=== PATIENT | female | born 1970 | race Caucasian/White ===

== ENCOUNTER → 2022-02-08 | Outpatient (CLI) | payer MEDICARE, MEDICAID, SELFPAY ==
--- NOTE | 2022-02-08 08:51 | NM_ITS ---
CLINICAL: 51-year-old female with history of carcinoma of the breast. WHOLE BODY 99m Tc MDP RADIONUCLIDE BONE SCINTIGRAPHY COMPARISON: None available FINDINGS: Following the intravenous administration of 26.8 mCi of 99m Tc MDP, whole body bone images reveal: 1. Increased radiotracer concentration is defined in the acromioclavicular and sternoclavicular compartments of both shoulders, the visualized right and left elbows, the fourth lumbar vertebra posteriorly on the left and right, the patellofemoral and medial tibial compartments of both knees, the dorsal medial compartments of both ankles. 2. The remaining skeletal structures are scintigraphically unremarkable with normal-appearing renal images and urinary bladder activity identified. Enhanced tracer uptake is noted in the bilateral maxilla and mandible, the interorbital aspect of the skull likely representing periodontal disease and periostitis respectively. NM/Bone Scan Whole Body IMPRESSION: 1. Degenerative arthritis appears expressed in the bilateral shoulders, the right and left elbows, the lumbar spine, both knee articulations the right and left ankles. 2. There is no definitive scintigraphic evidence of diffuse axial skeletal metastatic disease on the current examination. Electronically Signed: Jaciel Gustafson, at 10:13 EDT ,
== END | disposition home or self-care (01) ==
LOC: NM 08:50
PROVIDERS: PCP Family Medicine; Referring Provider Orthopaedic Surgery; Visit Provider Orthopaedic Surgery
DX: M54.50 Low back pain, unspecified (principal)
CPT/HCPCS: 78306; A9503

== ENCOUNTER 2023-11-04 14:21 | Inpatient (IN) | payer MEDICARE, MEDICAID, SELFPAY ==
[2023-11-04 14:22] VITALS: BP 140/87; PULSE 99; RESP 16; TEMP 36.8; O2SAT 98; BMI 28.6
--- NOTE | 2023-11-04 14:30 | CT_ITS ---
STUDY: CT ABDOMEN AND PELVIS WITHOUT CONTRAST REASON FOR EXAM: Female, 53 years old. Right flank pain. History of breast cancer. RADIATION DOSAGE (If Supplied By Facility): CTDIvol = ( 10.03 ) mGy, DLP = ( 513.48 ) mGycm TECHNIQUE: Transaxial images were obtained from the dome of the diaphragm to the symphysis pubis without oral contrast, and without intravenous contrast. Sagittal and coronal images were reconstructed. Individualized dose optimization techniques were used for this CT. COMPARISON: None. FINDINGS: Right breast implant is seen. Minimal increased linear markings are seen in the anterior aspect of the right middle lobe suggestive of possible scarring following radiation treatment. The visualized portions of the heart are within normal limits. Normal liver. Normal gallbladder and extrahepatic biliary system. Normal spleen. Normal pancreas. There is a small, circumscribed, smooth, low attenuation left adrenal mass, consistent with an adrenal adenoma. This measures 1.2 cm. Normal right adrenal gland. Mild degree of right hydronephrosis and right hydroureter due to a 3.9 mm calculus at the right ureterovesical junction. There is a 6.9 mm calculus in the left renal pelvis causing mild degree of left hydronephrosis. Normal visualized stomach. Normal small intestine. There are scattered colonic diverticula consistent with diverticulosis. The appendix is visualized and appears normal. Normal abdominal aorta. Normal inferior vena cava. Normal retroperitoneum. Normal urinary bladder. Normal abdominal wall. There are mild degenerative changes of the visualized lumbar spine. CT/Abdomen/Pelvis without Cont IMPRESSION: Right hydronephrosis and hydroureter due to a 3.9 mm calculus at the right ureterovesical junction. 6.9 mm calculus in the left renal pelvis causing a mild degree of left hydronephrosis. Electronically Signed: Teddy Garcia MD at 15:10 EDT ,
--- NOTE | 2023-11-04 14:31 | EX.ED.DYSGE1 ---
HPI History of Present Illness Chief Complaint: Abd Pain Detail of Chief Complaint: Abdominal pain Informant: patient Narrative Narrative: Patient presents with right-sided abdominal pain that started 3 hours ago. Initially was more mild and then became more severe she was out shopping. She describes the pain is right lower abdomen and suprapubic region neck and it radiates to her right lower back. She has nausea. She rates her pain a 10 out of 10. She denies recent illness. She has had no fever. She denies diarrhea. No history of kidney stones. She denies dysuria urgency or frequency. She denies hematuria. 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 Osteopenia Fibromyalgia Rheumatoid aortitis Bipolar 1 disorder Malignant neoplasm Home Medications ?Medication ?Instructions ?Recorded ?Last Taken ?Type albuterol sulfate 90 mcg/actuation 1 inh inhalation ONCE 01/25/22 Unknown History aerosol inhaler amitriptyline 75 mg tablet mg PO 01/25/22 Unknown History anastrozole 1 mg tablet mg PO 01/25/22 Unknown History ascorbate calcium (vitamin C) 500 500 mg PO DAILY 01/25/22 Unknown History mg tablet cyclobenzaprine 10 mg tablet mg PO 01/25/22 Unknown History divalproex 250 mg tablet,delayed mg PO 01/25/22 Unknown History release furosemide 40 mg tablet mg PO 01/25/22 Unknown History gabapentin 400 mg capsule mg PO 01/25/22 Unknown History levothyroxine 25 mcg tablet mcg PO 01/25/22 Unknown History loratadine 10 mg tablet (Allergy 10 mg PO DAILY 01/25/22 Unknown History Relief (loratadine)) omega 9-tzt-iqo-fish oil 300 1 cap PO DAILY 01/25/22 Unknown History mg-1,000 mg capsule (Fish Oil) omeprazole 40 mg capsule,delayed mg PO 01/25/22 Unknown History release oxycodone-acetaminophen 5 mg-325 tab PO 01/25/22 Unknown History mg tablet rosuvastatin 40 mg tablet mg PO 01/25/22 Unknown History sumatriptan succinate 25 mg tablet mg PO 01/25/22 Unknown History topiramate 50 mg tablet mg PO 01/25/22 Unknown History Allergy/AdvReac Type Severity Reaction Status Date / Time ibuprofen (From Advil) Allergy Mild Inflammation Verified 04/24/22 13:04 of lung bee venom protein (honey Allergy Inflammation Verified 09/13/22 10:38 bee) (bee sting) of lung Social History Smoking Status: Current every day smoker tobacco type: cigarettes ROS ROS ED Review of Systems ROS Unobtainable: other Constitutional Constitutional ED: Reports lethargy; Denies chills, fever(s), sweats or weight loss Eyes Eyes: Denies blurry vision, change in vision or diplopia ENT ENT ED: Denies rhinorrhea or sore throat Cardiovascular Cardiovascular: Denies chest pain, orthopnea or racing heartbeat Respiratory/Chest Respiratory/Chest: Denies cough, dyspnea, dyspnea on exertion, orthopnea or sputum Gastrointestinal Gastrointestinal: Reports abdominal pain and nausea; Denies diarrhea or vomiting Genitourinary Genitourinary ED: Denies dysuria, hematuria or urinary frequency Musculoskeletal Musculoskeletal: Reports back pain; Denies arthralgias, myalgias or neck pain Integumentary Denies abscess, Abrasions or rash Neurologic Neurologic: Denies headache(s) or weakness Psychiatric Psychiatric: Denies anxiety, depression or suicidal thoughts Endocrine Endocrinology: Denies polydipsia, polyphagia or polyuria Hematologic/Lymphatic Hematologic/Lymphatic: Denies easy bleeding, easy bruising or lymphadenopathy Allergic/Immunologic Allergic/Immunologic ED: Denies mouth swelling, tongue swelling or urticaria EXAM Physical Exam Const Vital Signs: 11/04/23 14:22 11/04/23 15:50 11/04/23 16:00 Temperature 98.3 F 96.9 F L Temperature Source Temporal Temporal Pulse Rate 99 95 68 Respiratory Rate 16 16 18 Blood Pressure 140/87 H 111/73 110/61 Blood Pressure Mean 104 85 77 Pulse Ox 98 99 93 Oxygen Delivery Method Room Air Room Air Room Air Positive well nourished and well developed General Appearance ED: well developed and NAD HEENT Reports TM's clear and moist mucous membranes normocephalic and atraumatic; Negative for trauma or tenderness Tympanic Membrane ED: Yes TM's clear Eyes PERRL and EOMs intact bilaterally General Eye ED: Negative for pale conjunctiva or scleral icterus Neck no lymphadenopathy, supple and no JVD General: Negative for tenderness Chest Wall inspection of chest normal and palpation of chest normal Chest: Negative for tenderness Resp normal respiratory effort and clear to auscultation bilaterally Effort and Inspection: Negative for respiratory distress or pain with movement Auscultation: Negative for rhonchi, wheezes or diminished lung sounds Cardio regular rate, regular rhythm, S1 normal heart sound, S2 normal heart sound and no murmurs Peripheral Pulses: pulses 2+ throughout GI normal to inspection, nondistended, normoactive bowel sounds, soft to palpation, non-distended and no masses GI Narrative: Tenderness palpation over the right lower quadrant and suprapubic region. There is no rebound, rigidity, or peritoneal signs. Mild tenderness over the right CVA. Back/Spine no thoracic nor lumbar tenderness; Negative for no CVA tenderness General Back: CVA tenderness right Extremity normal to inspection General Extremety ED: Negative for edema General Extremity: Negative for edema Neuro oriented x3, CN's II-XII intact bilaterally, no sensory deficits noted and gait normal Sensorium / Orientation: awake, alert, oriented to person, oriented to place and oriented to time Motor Exam: strength 5/5 throughout and strength abnormal Psych mental status grossly normal Skin no rashes or lesions noted and no wounds MDM MDM MDM Narrative Medical decision making narrative: It was sudden onset of right flank pain. IV line established. She was medicated with morphine and Zofran as she cannot have NSAIDs. CBC with differential count of 9.2 with hemoglobin 13.8 and platelet count of 215. Chemistries unremarkable other than low CO2 of 19. LFTs were normal. Urinalysis positive for infection with positive nitrites as well as 500 leukocyte esterase and greater than 100 WBCs and +3 bacteria. Urine culture was sent. Patient was started on Rocephin 1 g IV. Patient had to be remedicated with Dilaudid and continues to complain of pain. Discussed case with urology who evaluated patient in the emergency department and will admit patient to the hospital. Lab Data Attestation: I reviewed the patient's lab results. Labs: Laboratory Results - last 24 hr 11/04/23 11/04/23 14:10 15:00 WBC 9.2 RBC 4.41 Hgb 13.8 Hct 41.6 MCV 94.3 MCH 31.3 MCHC 33.2 RDW Std Deviation 48.4 H RDW Coeff of Dian 14.0 Plt Count 215 MPV 10.5 Immature Gran % (Auto) 0.300 Neut % (Auto) 57.8 Lymph % (Auto) 32.2 [place] % (Auto) 7.2 Eos % (Auto) 2.1 Baso % (Auto) 0.4 Absolute Neuts (auto) 5.3 Absolute Lymphs (auto) 2.96 Nucleated RBC % 0 Sodium 139 Potassium 3.6 Chloride 114 H Carbon Dioxide 19.0 L Anion Gap 6 BUN 17 Creatinine 1.15 H Estim Creat Clear Calc 59.12 Est GFR (MDRD) Af Amer 64 Est GFR (MDRD) Non-Af 53 L BUN/Creatinine Ratio 14.8 Glucose 125 H Lactic Acid 0.7 Calcium 9.5 Total Bilirubin 0.30 AST 10 L ALT 20 Alkaline Phosphatase 111 Total Protein 7.5 Albumin 4.0 Globulin 3.5 Albumin/Globulin Ratio 1.1 Urine Color Yellow Urine Clarity Turbid Urine pH 6.0 Ur Specific [place] 1.025 Urine Protein 100 H Urine Glucose (UA) Normal Urine Ketones Negative Urine Occult Blood 250 H Urine Nitrite Positive H Urine Bilirubin Negative Urine Urobilinogen Normal Ur Leukocyte Esterase 500 H Urine RBC 10-25 SEEN Urine WBC >100 SEEN Ur Squamous Epith Cells 0-5 SEEN Calcium Oxalate Crystal RARE Urine Bacteria 3+ Urine Mucus 0 SEEN Radiography Diagnostic Testing: Clinical Impression(s) from Imaging Studies Abdomen/Pelvis CT 11/04/23 14:30 IMPRESSION: Right hydronephrosis and hydroureter due to a 3.9 mm calculus at the right ureterovesical junction. 6.9 mm calculus in the left renal pelvis causing a mild degree of left hydronephrosis. Electronically Signed: Teddy Garcia MD at 15:10 EDT , Discharge Plan Triage Chief Complaint: Abd Pain ED Provider: Pamela Rivera Dx/Rx/DC Orders Clinical Impression: Urolithiasis, UTI (urinary tract infection), Intractable pain Prescriptions: No Action oxycodone-acetaminophen 5-325 mg tablet PO amitriptyline 75 mg tablet PO omeprazole 40 mg capsule,delayed release(DR/EC) PO anastrozole 1 mg tablet PO topiramate 50 mg tablet PO sumatriptan succinate 25 mg tablet PO cyclobenzaprine 10 mg tablet PO divalproex 250 mg tablet,delayed release (DR/EC) PO rosuvastatin 40 mg tablet PO furosemide 40 mg tablet PO levothyroxine 25 mcg tablet PO gabapentin 400 mg capsule PO albuterol sulfate 90 mcg/actuation HFA aerosol inhaler 1 inh inhalation ONCE omega 7-pku-tyd-fish oil [Fish Oil] 300-1,000 mg capsule 1 cap PO DAILY ascorbate calcium (vitamin C) 500 mg tablet 500 mg PO DAILY loratadine [Allergy Relief (loratadine)] 10 mg tablet 10 mg PO DAILY Primary Care Provider: Jeffrey Rivers Referrals: Solomon Luciano MD [[facility]] - Print Language: Mohawk Disposition Disposition: Acute Care Hospital [facility]
[2023-11-04] MEDS: 0.9% Normal Saline (1000mL) 1,000 ML 1000 ML IV (14:36)
[2023-11-04] MEDS: Morphine 4 MG/ML Syringe IV (14:36)
[2023-11-04] MEDS: Ondansetron 4 MG/2 ML Vial IV (14:36)
[2023-11-04 14:54] LABS: Absolute Lymphocyte Count 2.96 X10^3/uL (0.83-4.51); Absolute Neutrophil Count 5.3 X10^3/uL (2.0-7.7); Basophil# 0.04 X10^3/uL; Basophil% 0.4 % (0-1); Eosinophil# 0.19 X10^3/uL; Eosinophils% 2.1 % (0-5); Hematocrit 41.6 % (37-47); Hemoglobin 13.8 g/dL (12.0-15.0); Lymphocyte # 2.96 X10^3/ul (0.83-4.51); Lymphocyte % 32.2 % (19-41); Mean Corp Hgb Conc 33.2 g/dL (32-36); Mean Corpuscular Hgb 31.3 pg (27.0-32.0); Mean Corpuscular Volume 94.3 fL (81-99); Mean Platelet Vol. 10.5 fl (6.2-12.0); Monocyte# 0.66 X10^3/uL; Monocyte% 7.2 % (0-10); NRBC Flagged by Analyzer 0 % (0-5); Neutrophil # 5.31 X10^3/uL (2.7-7.7); Neutrophil % 57.8 % (47-70); Platelet Count 215 K/mm3 (150-450); RBC Distribution Width SD 48.4 fl (35.1-43.9); Red Blood Count 4.41 M/mm3 (4.2-5.4); White Blood Count 9.2 K/mm3 (4.4-11.0)
[2023-11-04 15:10] LABS: ALB/GLOB Ratio 1.1 RATIO (0.9-2.4); AST(SGOT) 10 U/L (15-37); Alanine Aminotransfer ALT/SGPT 20 U/L (13-56); Alkaline Phosphatase 111 U/L (45-117); Anion Gap 6 (5-15); BUN 17 mg/dL (7-18); BUN/Creat Ratio 14.8 RATIO (10-20); Calcium,Total 9.5 mg/dL (8.5-10.1); Chloride 114 mmol/L (98-107); Creatinine, Serum 1.15 mg/dL (0.55-1.02); EST Glomerular Filtration Rate 53 mL/min (>60); Est Glom Filt Rate - Afr Amer 64 mL/min (>60); Estimated Creatinine Clearance 59.12 ml/min; Globulin 3.5 g/dL (2.2-4.2); Glucose 125 mg/dL (74-106); Potassium 3.6 mmol/L (3.5-5.1); Protein, Total 7.5 g/dL (6.4-8.2); Sodium Level 139 mmol/L (136-145)
[2023-11-04] MEDS: HYDROmorphone 1 MG/ML Syringe IV (15:15)
[2023-11-04 15:18] LABS: Lactic Acid 0.7 mmol/L (0.4-1.9)
[2023-11-04 15:32] LABS: Mucous, Urine 0 SEEN /hpf (<or=2+)
[2023-11-04 15:33] LABS: Color, Urine Yellow (Yellow); Glucose, Dipstick Normal (Normal); Ketone-Dipstick Negative (Negative); Leukocyte Esterase-Dipstick 500 /ul (Negative); Nitrite-Dipstick Positive (Negative); Occult Blood-Urine 250 /ul (Negative); Protein-Dipstick 100 mg/dl (Negative); Specific Gravity, Urine 1.025 (1.002-1.030); Urine Bilirubin Dipstick Negative (Negative); Urine Clarity Turbid (Clear); Urine Urobilinogen Normal (Normal)
[2023-11-04 15:50] VITALS: BP 111/73; PULSE 95; RESP 16; TEMP 36.1; O2SAT 99
[2023-11-04 15:50] LABS: Squamous Epithelial Cells - UA 0-5 SEEN /hpf (5-10); White Blood Cells >100 SEEN /hpf (0-5)
[2023-11-04 15:51] LABS: Bacteria 3+ /hpf (None Seen); Calcium Oxalate Crystals Ur RARE /hpf (<or=2+)
[2023-11-04 15:52] LABS: Red Blood Cells-Urine 10-25 SEEN /hpf (0-5)
[2023-11-04 16:00] VITALS: BP 110/61; PULSE 68; RESP 18; O2SAT 93
--- NOTE | 2023-11-04 16:23 | PCM.HP.STD ---
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 Osteopenia Fibromyalgia Rheumatoid aortitis Bipolar 1 disorder Malignant neoplasm Home Medications ?Medication ?Instructions ?Recorded ?Last Taken ?Type albuterol sulfate 90 mcg/actuation 1 inh inhalation ONCE 01/25/22 Unknown History aerosol inhaler amitriptyline 75 mg tablet mg PO 01/25/22 Unknown History anastrozole 1 mg tablet mg PO 01/25/22 Unknown History ascorbate calcium (vitamin C) 500 500 mg PO DAILY 01/25/22 Unknown History mg tablet cyclobenzaprine 10 mg tablet mg PO 01/25/22 Unknown History divalproex 250 mg tablet,delayed mg PO 01/25/22 Unknown History release furosemide 40 mg tablet mg PO 01/25/22 Unknown History gabapentin 400 mg capsule mg PO 01/25/22 Unknown History levothyroxine 25 mcg tablet mcg PO 01/25/22 Unknown History loratadine 10 mg tablet (Allergy 10 mg PO DAILY 01/25/22 Unknown History Relief (loratadine)) omega 1-tts-tyn-fish oil 300 1 cap PO DAILY 01/25/22 Unknown History mg-1,000 mg capsule (Fish Oil) omeprazole 40 mg capsule,delayed mg PO 01/25/22 Unknown History release oxycodone-acetaminophen 5 mg-325 tab PO 01/25/22 Unknown History mg tablet rosuvastatin 40 mg tablet mg PO 01/25/22 Unknown History sumatriptan succinate 25 mg tablet mg PO 01/25/22 Unknown History topiramate 50 mg tablet mg PO 01/25/22 Unknown History Allergy/AdvReac Type Severity Reaction Status Date / Time ibuprofen (From Advil) Allergy Mild Inflammation Verified 04/24/22 13:04 of lung bee venom protein (honey Allergy Inflammation Verified 09/13/22 10:38 bee) (bee sting) of lung Social History Smoking Status: Current every day smoker tobacco type: cigarettes ROS Constitutional Constitutional: Denies chills, fever(s) or malaise Eyes Eyes: Denies blurry vision or change in vision ENT HEENT: Reports none Cardiovascular Cardiovascular: Denies chest pain or palpitations Respiratory/Chest Respiratory/Chest: Denies cough or shortness of breath with exertion Gastrointestinal Gastrointestinal: Denies abdominal pain, constipation or diarrhea Musculoskeletal Musculoskeletal: Denies back pain, joint stiffness or joint swelling Integumentary Integumentary: Denies dry skin, jaundice, lesions or rash Neurologic Neurologic: Denies confusion, syncope or weakness Psychiatric Psychiatric: Reports none; Denies anxiety or depression Endocrine Endocrinology: Denies excessive sweating, fatigue or flushing Hematologic/Lymphatic Hematologic/Lymphatic: Denies anemia, easy bleeding or easy bruising Vital Signs Vital Signs Vital Signs: 11/04/23 14:22 11/04/23 15:50 11/04/23 16:00 Temperature 98.3 F 96.9 F L Temperature Source Temporal Temporal Pulse Rate 99 95 68 Respiratory Rate 16 16 18 Blood Pressure 140/87 H 111/73 110/61 Blood Pressure Mean 104 85 77 Pulse Ox 98 99 93 Oxygen Delivery Method Room Air Room Air Room Air Weight Weight: 78.1 kg Body Mass Index (BMI) 28.6 Physical Exam Const alert and oriented x3 General Appearance: cooperative HEENT normocephalic, head/scalp atraumatic, EAC's normal and TM's normal bilaterally Eyes PERRL and EOMs intact bilaterally Pupil: sluggish Neck no lymphadenopathy, supple and no JVD General: trachea midline Lymph Lymphatic: no lymphadenopathy noted, lymphedema and lymphadenopathy Resp normal respiratory effort, normal air movement and clear to auscultation bilaterally Cardio regular rate, regular rhythm and peripheral pulses 2+ throughout GI soft to palpation, non-tender and non-distended Extremity normal capillary refill and no clubbing, cyanosis or edema General Extremity: no tenderness to palpation of joints or extremities Skin no rashes or lesions noted General Skin Exam: turgor normal Lesions: no lesions Rashes: no rashes Neuro CN's II-XII intact bilaterally Speech: speech normal Motor Exam: strength 5/5 throughout; Negative for general weakness Psych thought process normal, cooperative and affect normal Appearance: appropriate Results Lab / Micro Data 11/04/23 14:10 11/04/23 14:10 Labs: Laboratory Results - last 24 hr 11/04/23 14:10: WBC 9.2, RBC 4.41, Hgb 13.8, Hct 41.6, MCV 94.3, MCH 31.3, MCHC 33.2, RDW Std Deviation 48.4 H, RDW Coeff of Dian 14.0, Plt Count 215, MPV 10.5, Immature Gran % (Auto) 0.300, Neut % (Auto) 57.8, Lymph % (Auto) 32.2, [place] % (Auto) 7.2, Eos % (Auto) 2.1, Baso % (Auto) 0.4, Absolute Neuts (auto) 5.3, Absolute Lymphs (auto) 2.96, Nucleated RBC % 0, Sodium 139, Potassium 3.6, Chloride 114 H, Carbon Dioxide 19.0 L, Anion Gap 6, BUN 17, Creatinine 1.15 H, Estim Creat Clear Calc 59.12, Est GFR (MDRD) Af Amer 64, Est GFR (MDRD) Non-Af 53 L, BUN/Creatinine Ratio 14.8, Glucose 125 H, Lactic Acid 0.7, Calcium 9.5, Total Bilirubin 0.30, AST 10 L, ALT 20, Alkaline Phosphatase 111, Total Protein 7.5, Albumin 4.0, Globulin 3.5, Albumin/Globulin Ratio 1.1 11/04/23 15:00: Urine Color Yellow, Urine Clarity Turbid, Urine pH 6.0, Ur Specific [place] 1.025, Urine Protein 100 H, Urine Glucose (UA) Normal, Urine Ketones Negative, Urine Occult Blood 250 H, Urine Nitrite Positive H, Urine Bilirubin Negative, Urine Urobilinogen Normal, Ur Leukocyte Esterase 500 H, Urine RBC 10-25 SEEN, Urine WBC >100 SEEN, Ur Squamous Epith Cells 0-5 SEEN, Calcium Oxalate Crystal RARE, Urine Bacteria 3+, Urine Mucus 0 SEEN Imaging Radiology Impression Abdomen/Pelvis CT 11/04/23 14:30 IMPRESSION: Right hydronephrosis and hydroureter due to a 3.9 mm calculus at the right ureterovesical junction. 6.9 mm calculus in the left renal pelvis causing a mild degree of left hydronephrosis. 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 (2) Left renal stone: (3) Urinary tract infection:
--- NOTE | 2023-11-04 16:26 | NURSING ---
MED SURG OBS DEREJE CHOLELITHIASIS, UTI, INTRACTABLE PAIN
[2023-11-04] MEDS: Ceftriaxone 1 GM/50 mL Premix x1 IV (16:43)
[2023-11-04 18:15] VITALS: BMI 28.7
[2023-11-04 18:27] VITALS: BP 111/76; PULSE 97; RESP 18; TEMP 37.2; O2SAT 100
[2023-11-04] MEDS: 0.9% Normal Saline (1000mL) 1,000 ML 75 ML IV (18:47)
[2023-11-04] MEDS: HYDROcodone Bitartrate/Apap 5/325 Tablet PO (18:59)
[2023-11-04 22:20] VITALS: BP 103/65; PULSE 107; RESP 15; TEMP 37.5; O2SAT 98
[2023-11-04] MEDS: Ciprofloxacin 400 MG/200 ML BAG 200 MG IV (22:22)
[2023-11-04] MEDS: Acetaminophen 325 MG Tablet PO (22:30)
[2023-11-04] MEDS: Docusate Sodium 100 MG Capsule 200 MG PO (22:31)
[2023-11-04 22:41] VITALS: BMI 28.7
[2023-11-04] MEDS: Mag Hydrox/Al Hydrox/Simeth 30 ML UDC PO (23:22)
[2023-11-04] MEDS: Gabapentin 400 MG Capsule PO (23:53)
[2023-11-04] MEDS: Topiramate 100 MG Tablet PO (23:53)
[2023-11-04] MEDS: Amitriptyline 100 MG Tablet PO (23:54)
[2023-11-05] VITALS (13 sets, daily range): BP systolic 88–133; BP diastolic 60–88; PULSE 72–103; RESP 15–18; TEMP 36.2–37.2; O2SAT 94–100; BMI 28.7
--- NOTE | 2023-11-05 05:00 | EKG12_ITS ---
Test Reason : PRE-OP Blood Pressure : / mmHG Vent. Rate : 098 BPM Atrial Rate : 098 BPM P-R Int : 150 ms QRS Dur : 088 ms QT Int : 346 ms P-R-T Axes : 067 072 066 degrees QTc Int : 441 ms Normal sinus rhythm Normal ECG No previous ECGs available Confirmed by YAMILET MCHUGH, MARQUES ([id number]), news assignment editor JORGE LEE ([id number]) on 11/06/2023 8:29:38 AM Referred By: DEREJE Confirmed By:MARQUES WOODARD MD
[2023-11-05 05:58] LABS: Hematocrit 38.4 % (37-47); Hemoglobin 12.2 g/dL (12.0-15.0); Mean Corp Hgb Conc 31.8 g/dL (32-36); Mean Corpuscular Hgb 30.5 pg (27.0-32.0); Mean Platelet Vol. 10.9 fl (6.2-12.0); Platelet Count 169 K/mm3 (150-450); RBC Distribution Width CV 14.2 % (11.6-14.6); RBC Distribution Width SD 50.1 fl (35.1-43.9); White Blood Count 8.7 K/mm3 (4.4-11.0)
[2023-11-05 06:23] LABS: Anion Gap 5 (5-15); BUN 14 mg/dL (7-18); BUN/Creat Ratio 14.8 RATIO (10-20); Calcium,Total 8.7 mg/dL (8.5-10.1); Chloride 117 mmol/L (98-107); Creatinine, Serum 0.94 mg/dL (0.55-1.02); EST Glomerular Filtration Rate 66 mL/min (>60); Est Glom Filt Rate - Afr Amer 80 mL/min (>60); Estimated Creatinine Clearance 72.41 ml/min; Glucose 119 mg/dL (74-106); Potassium 3.7 mmol/L (3.5-5.1); Sodium Level 143 mmol/L (136-145); Thyroid Stim Hormone (TSH) 0.64 uIU/mL (0.358-3.74)
[2023-11-05] MEDS: Anastrozole 1 MG TABLET PO (07:27)
[2023-11-05] MEDS: Levothyroxine 25 MCG TABLET PO (07:27)
[2023-11-05] MEDS: Topiramate 100 MG Tablet PO (07:28)
[2023-11-05] MEDS: 0.9% Normal Saline (1000mL) 1,000 ML 75 ML IV (07:31)
[2023-11-05] MEDS: Loratadine 10 MG Tablet PO (07:31)
[2023-11-05] MEDS: Acetaminophen 325 MG Tablet PO (09:27)
[2023-11-05] MEDS: Ciprofloxacin 400 MG/200 ML BAG 200 MG IV (09:31)
--- NOTE | 2023-11-05 12:15 | CASEMGMT ---
RN?CM?MICROBIOLOGICAL LABORATORY TECHNICIAN?CM?to room to meet with patient for initial transition planning/care coordination?assessment.?RN?CM?introduced self and role at [facility].? Pt voices understanding and consents to?assessment?at this time.? Pt resting in bed in no distress at this time.? Pt is A/O at this time and answers all questions appropriately.?? Care providers, pharmacy, and demographics verified/updated at this time. PCP: Dr Rivers Specialists: [facility]-hematology. Dr Nia Ortiz (pt thinks this is spelling)-neuro, [facility]. GI specialist in [place]. Preferred Pharmacy: [facility] Retail Insurance: [employer], ANG[place] Prescription Benefit:?yes Living Will/HPOA:?Pt does not currently have LW/HCPOA and declines info at this time.? Pt made aware that she can contact as an out-pt and make appt in the future if she decides she would like to talk with someone about this or would like to utilize [facility] social work for advanced directive completion.? LNOK: Pt has a son who lives in [place] and daughter who lives in [place]. Mom, Ritika. Living Arrangements: Pt lives w/her mom in mobile home w/ramp entrance. Independent w/ADL's and IADL's. Transportation:?Pt states drives self and states no transportation concerns at this time.? DME: ? Denies using any DME and denies needs.? HHC/SNF: No hx of either. No needs identified. Pt wishes to return home and states has no concerns with going home at time of discharge.? CM?to follow for any discharge planning/needs.? Pt voices no concerns/needs at this time.? Advised pt to ask for?CM?if any further questions/concerns/needs arise.? Voices understanding. PLAN:??Home Yen BSN?RN?CM
--- NOTE | 2023-11-05 15:16 | NURSING ---
pt to surgery
--- NOTE | 2023-11-05 15:40 | PRE.ANES_ITS ---
ASA Classification* ASA Classification ASA Classification: 3 Assessment & Plan Anesthesia* Anesthesia Assessment Anesthesia Assessment: Discussed sedation and/or anesthesia options, risks, benefits, and alternatives with patient/parents/legal guardian/POA. Questions invited. The patient/parents/legal guardian/POA seems to understand and agrees to proceed with anesthesia plan. Reviewed the physical assessment, medical history, allergy history and patient home medications list prior to surgery/procedure/anesthetic and documented any changes. Performed airway and anesthesia risk assessments. 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 When Was Last Pacemaker Check QUESTION #4 FULL TEXT: You/Your Family Experience fever (hyperthermia) with Anesthesia Any additional information?: Yes Any Problems With Anesthesia: No (Patient denies problems with anesthesia) Cholinesterase deficiency: No You/your family experience fever (hyperthermia) with anesthesia: No Last Oral Intake Last Oral intake: Last Oral Intake NPO since 00:00 11/05/23 13:08 Meds taken in AM with sips of water? Meds patient instructed to take am of surgery PONV PONV - motor racer: PONV - motor racer Female HX of Motion Sickness HX of N/V After Surgery Non-Smoker Duration of Surgery greater than 60 minutes Number of Risk Factors PONV Score Any additional information?: Yes Female: Yes HX of Motion Sickness: No HX of N/V After Surgery: No Non-Smoker: No Duration of Surgery greater than 60 minutes: No Number of Risk Factors: 1 PONV Score: Low Risk Height & Weight Height & Weight: Anesthesia: Height & Weight Height 5 ft 5 in 11/05/23 13:08 Weight: 78.3 kg 11/05/23 13:08 Body Mass Index (BMI) 28.7 11/05/23 13:08 Respiratory Assessment Respiratory Assessment - motor racer: Respiratory Tract Infection Hx - motor racer Hx Respiratory Tract Infection No 11/04/23 22:34 STOP Sleep Apnea STOP Sleep Apnea - motor racer: STOP Sleep Apnea - motor racer Hx Hypertension No 11/04/23 18:19 Hx Sleep Apnea Yes 11/04/23 18:19 CPAP No 11/04/23 18:19 BIPAP No 11/04/23 18:19 Do you snore loudly (louder than talking or can be heard Do you often feel tired/ fatigued/ sleepy during daytime? Has anyone observed you stop breathing during sleep? STOP Results Positive 11/04/23 18:19 QUESTION #5 FULL TEXT : Do you snore loudly (louder than talking or can be heard through closed doors)? 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 Specify any problems Hx of Preganancy in last 3 No 11/04/23 18:19 Months Nurse Filling Out Transfusion FSTEINER 11/04/23 18:19 & Questions: Date: 11/04/23 11/04/23 18:19 Time: 18:20 11/04/23 18:19 Patient unable to answer at this time (ie. confused, unrespo /Reproduction History /Reproductive History - motor racer: /Reproductive Hx- motor racer Hx Now No 11/04/23 22:34 Gestational Age (in weeks): EDC: Hx Hx Para Hx Section SAB Active Medications Active Medications: Current Medications Generic Name Dose Route Start Last Admin Trade Name Freq PRN Reason Stop Dose Admin Acetaminophen 325 mg 11/04/23 16:29 11/05/23 09:27 Acetaminophen 325 Mg Tablet PO 325 mg Q6H PRN PRN Administration Pain Score 1-10 Hydrocodone Bitart/Acetaminophen 1 - 2 tablet 11/04/23 16:29 11/04/23 18:59 Hydrocodone Bitartrate/Apap 5/325 Tablet PO 2 tablet Q6H PRN PRN Administration Pain Score 4-10 Al Hydroxide/Mg Hydroxide 30 ml 11/04/23 16:29 11/04/23 23:22 Mag Hydrox/Al Hydrox/Simeth 30 Ml Udc PO 30 ml Q4H PRN PRN Administration HEARTBURN Albuterol Sulfate 2.5 mg 11/04/23 19:03 Albuterol 2.5 Mg/3 Ml Vial.Neb. INHALATION Q4H PRN SHORTNESS OF BREATH Amitriptyline HCl 100 mg 11/04/23 23:30 11/04/23 23:54 Amitriptyline 100 Mg Tablet PO 100 mg QHS BETH Administration Anastrozole 1 mg 11/05/23 10:00 11/05/23 07:27 Anastrozole 1 Mg Tablet PO 1 mg DAILY BETH Administration Atorvastatin Calcium 80 mg 11/05/23 22:00 Atorvastatin Calcium 80 Mg Tablet PO QHS BETH Baclofen 10 mg 11/04/23 23:22 Baclofen 10 Mg Tablet PO TID PRN PRN muscle spasm Docusate Sodium 200 mg 11/04/23 22:00 11/05/23 07:28 Docusate Sodium 100 Mg Capsule PO Not Given BID BETH Furosemide 40 mg 11/05/23 10:00 11/05/23 07:28 Furosemide 40 Mg Tablet PO Not Given DAILY [facility] Protocol Gabapentin 400 mg 11/04/23 23:30 11/05/23 13:20 Gabapentin 400 Mg Capsule PO Not Given TID BETH Hydroxyzine Pamoate 25 mg 11/04/23 23:22 Hydroxyzine Lilia 25 Mg Capsule PO 4X/DAY PRN itch Sodium Chloride 1,000 mls @ 75 mls/hr 11/04/23 16:30 11/05/23 15:15 IV 0 mls/hr .[id number] BETH Infusion Sodium Chloride 250 mls @ 15 mls/hr 11/04/23 18:18 IV .[id number] PRN Additional IVPB Infusion Sodium Chloride 250 mls @ 15 mls/hr 11/04/23 18:18 IV .[id number] PRN Saline Flush Levothyroxine Sodium 25 mcg 11/05/23 06:00 11/05/23 07:27 Levothyroxine 25 Mcg Tablet PO 25 mcg DAILY@0600 BETH Administration Loratadine 10 mg 11/05/23 10:00 11/05/23 07:31 Loratadine 10 Mg Tablet PO 10 mg DAILY BETH Administration Loratadine 10 mg 11/04/23 23:22 Loratadine 10 Mg Tablet PO DAILY PRN PRN allergy symptoms Sodium Chloride 10 - 40 ml 11/04/23 18:18 0.9% Saline Lock 10 Ml Syringe IV UD PRN SALINE FLUSH Topiramate 100 mg 11/04/23 23:30 11/05/23 07:28 Topiramate 100 Mg Tablet PO 100 mg BID BETH Administration Anesthesia Focused Assessment* Temperature: 97.4 F Pulse Rate: 96 Blood Pressure: 94/62 Respiratory Rate: 16 Pulse Ox: 99 Airway Assessment Mouth opens: >3 cm Mallampati Score: I Teeth Condition: Missing (Patient is edentulous) Neck Range of motion (ROM): Full ROM Pertinent Findings EKG Pertinent Findings:: Current EKG is normal sinus rhythm Focused Labs Anesthesia Preop lab: CBC WBC 8.7 K/mm3 (4.4-11.0) 11/05/23 05:09 RBC 4.00 M/mm3 (4.2-5.4) L 11/05/23 05:09 Hgb 12.2 g/dL (12.0-15.0) 11/05/23 05:09 Hct 38.4 % (37-47) 11/05/23 05:09 Plt Count 169 K/mm3 (150-450) 11/05/23 05:09 CHEMISTRY Potassium 3.7 mmol/L (3.5-5.1) 11/05/23 05:09 Sodium 143 mmol/L (136-145) 11/05/23 05:09 BUN 14 mg/dL (7-18) 11/05/23 05:09 Creatinine 0.94 mg/dL (0.55-1.02) 11/05/23 05:09 Glucose 119 mg/dL (74-106) H 11/05/23 05:09 TSH 0.64 uIU/mL (0.358-3.74) 11/05/23 05:09 COAG Review of Systems (Anesthesia) ROS Narrative System reviewed and no additional complaints, except as documented. [facility] Medical History (Updated 11/05/23 @ 15:[address] 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 Osteopenia Fibromyalgia Rheumatoid aortitis Bipolar 1 disorder Malignant neoplasm Home Medications ?Medication ?Instructions ?Recorded ?Last Taken ?Type albuterol sulfate 90 mcg/actuation 1 inh inhalation ONCE PRN 01/25/22 Unknown History aerosol inhaler shortness of breath or wheezing anastrozole 1 mg tablet 1 mg PO DAILY 01/25/22 11/04/23 History furosemide 40 mg tablet 40 mg PO DAILY 01/25/22 11/04/23 History gabapentin 400 mg capsule 400 mg PO TID 01/25/22 11/04/23 History levothyroxine 25 mcg tablet 25 mcg PO DAILY 01/25/22 11/04/23 History oxycodone-acetaminophen 5 mg-325 1 tab PO TID PRN pain 01/25/22 Unknown History mg tablet rosuvastatin 40 mg tablet 40 mg PO QHS 01/25/22 11/03/23 History sumatriptan succinate 25 mg tablet 25 mg PO PRN PRN migraine headache 01/25/22 Unknown History amitriptyline 100 mg tablet 100 mg PO QHS 11/04/23 11/03/23 History baclofen 10 mg tablet 10 mg PO TID PRN muscle spasm 11/04/23 11/04/23 History cetirizine 10 mg tablet 10 mg PO DAILY PRN allergy symptoms 11/04/23 Unknown History esomeprazole magnesium 40 mg 40 mg PO DAILY 11/04/23 11/04/23 History capsule,delayed release galcanezumab-gnlm 120 mg/mL 120 mg subcut QMONTH 11/04/23 10/10/23 History subcutaneous syringe (Emgality) hydroxyzine HCl 25 mg tablet 25 mg PO 4X/DAY PRN itch 11/04/23 Unknown History topiramate 100 mg tablet 100 mg PO BID 11/04/23 11/04/23 History Allergy/AdvReac Type Severity Reaction Status Date / Time ibuprofen (From Advil) Allergy Mild Inflammation Verified 04/24/22 13:04 of lung bee venom protein (honey Allergy Inflammation Verified 09/13/22 10:38 bee) (bee sting) of lung Surgical History History of rhinoplasty H/O right mastectomy Social History Smoking Status: Current every day smoker tobacco type: cigarettes Addt'l Information Additional Findings: Patient has had multiple lumbar steroid injection with no complication
--- NOTE | 2023-11-05 16:19 | PCM.POST.ANE ---
Anesthesia: Postop Eval I Current Vital Signs Temperature: 98.5 F Pulse Rate: 72 Blood Pressure: 133/88 Respiratory Rate: 16 Pulse Ox: 94 Oxygen Delivery Method: Room Air Assessment Airway patent: Yes Spontaneous unlabored respirations: Yes Mental status: Awake and Calm nausea: No Vomiting: No Anesthesia Complication: No Fluid Hydration Crystalloid volume administer (ml): 800 Total IV fluid infused: 800 Progress Note Anesthesia document: Postop Eval 1 completed: Yes
--- NOTE | 2023-11-05 16:40 | PCM.POST.ANE ---
Anesthesia: Postop Eval I Current Vital Signs Temperature: 97.8 F Pulse Rate: 95 Blood Pressure: 88/69 Respiratory Rate: 16 Pulse Ox: 96 Oxygen Delivery Method: Room Air Assessment Airway patent: Yes Spontaneous unlabored respirations: Yes Mental status: Awake and Calm nausea: No Vomiting: No Anesthesia Complication: No Fluid Hydration Crystalloid volume administer (ml): 400 Total IV fluid infused: 400 Progress Note Anesthesia document: Postop Eval 1 completed: Yes
--- NOTE | 2023-11-05 16:48 | DCINST_ITS ---
Discharge Instructions Diet Discharge Diet: No restrictions Activity Discharge Activity: Return to Normal Activity and May Not Drive (while taking narcotic pain medications.) Dressing / Incision Call your doctor if you observe: Fever of 101 or Higher Follow Up Care Please Follow Up With: Victorino Boone MD When: Call [phone] to get set up for Surgery to laser your stones. you have a temporary stent on the right side. Test Results: Test results from this visit will be discussed in further detail at your follow- up appointment, if applicable. Discharge Plan Admission Admit Date/Time: 11/04/23 16:31 Primary Reason for Your Visit: stent placement for stone Attending Provider: Victorino Boone Primary Care Provider: Jeffrey Rivers Patient Instructions: Having a Ureteral Stent Discharge Orders/Prescriptions Prescriptions: New oxycodone 5 mg tablet 5 mg PO Q6H PRN (Reason: pain) 7 Days Qty: 14 0RF ciprofloxacin HCl [Cipro] 500 mg tablet 500 mg PO BID Qty: 14 0RF phenazopyridine [Pyridium] 100 mg tablet 100 mg PO TID Qty: 15 0RF tamsulosin 0.4 mg capsule 0.4 mg PO DAILY Qty: 10 0RF Continued oxycodone-acetaminophen 5-325 mg tablet 1 tab PO TID PRN (Reason: pain) anastrozole 1 mg tablet 1 mg PO DAILY sumatriptan succinate 25 mg tablet 25 mg PO PRN PRN (Reason: migraine headache) rosuvastatin 40 mg tablet 40 mg PO QHS furosemide 40 mg tablet 40 mg PO DAILY levothyroxine 25 mcg tablet 25 mcg PO DAILY gabapentin 400 mg capsule 400 mg PO TID albuterol sulfate 90 mcg/actuation HFA aerosol inhaler 1 inh inhalation ONCE PRN (Reason: shortness of breath or wheezing) baclofen 10 mg tablet 10 mg PO TID PRN (Reason: muscle spasm) amitriptyline 100 mg tablet 100 mg PO QHS Patient Comments: 150MG PRESCRIBED TODAY, BUT NOT PICKED UP OR STARTED YET. STILL TAKING 100MG esomeprazole magnesium 40 mg capsule,delayed release(DR/EC) 40 mg PO DAILY Emgality Syringe 120 mg/mL syringe 120 mg subcut QMONTH Rx Instructions: LAST TAKEN 10/10/23 hydroxyzine HCl 25 mg tablet 25 mg PO 4X/DAY PRN (Reason: itch) topiramate 100 mg tablet 100 mg PO BID cetirizine 10 mg tablet 10 mg PO DAILY PRN (Reason: allergy symptoms) Referrals / Follow Up: Victorino Boone MD [Med Staff - Active Staff] - Jeffrey Rivers DO [Primary Care Provider] - Solomon Luciano MD [[facility]] - Disposition Disposition (needs filled in before D/C Order can be placed): Home, Self Care
--- NOTE | 2023-11-05 16:49 | PCM.OPRPT ---
Report of Operation Date of Procedure: 11/05/23 Pre-Operative Diagnosis: Right obstructing ureteral calculus, left renal calculus Post-Operative Diagnosis: The same Surgery/Procedure Performed:: Cystoscopy right stent placement Description of Surgical Findings:: Indication is a 54-year-old female presented to the hospital with severe right flank pain chills as a urinary tract infection. Today she was admitted for pain control and she is can undergo cystoscopy and stent placement to alleviate obstruction she is also being treated for urinary tract infection. Explained to the patient at this point not safe to proceed with any laser intervention given her current infection. She was taken back to the operating room after smooth induction of a MAC local anesthetic. The she was placed in dorsolithotomy position. The urethrovaginal area prepped and draped in usual fashion, tried to go into the urethra with a 21 Martiniquais scope but is her urethra was quite small so then I had to carefully dilate the urethra from 18 Martiniquais to 24 Martiniquais with serial Tierra dilators and this was completed then I was able to get into the urethra with a 21 Martiniquais scope quite easily the bladder looked normal and you did have some like purulent urine inside the bladder, I then cannulated the right ureteral orifice with a Glidewire and could still see the stone on fluoroscopy I could see the wire get barely passed the stone go up into the kidney and then over the wire I placed a stent it was 6 Martiniquais by 26 cm stent once the stent was in good position then I pulled the wire and this stent coiled in the kidney bladder good position and drained the bladder. Patient anesthetic reversed taken back to PACU in good condition she will be discharged home today with antibiotics and pain medicine. My office to call her with instructions to set her up for surgery to laser the remaining stones on both sides. Surgeon: Victorino Boone Type of Anesthesia: MAC and Topical Anesth Drains: stent right side Estimated Blood Loss (mL): 0 Admit VTE Documentation VTE Present on Admission: No VTE Mechan Device Prophylaxis: SCD's VTE Pharm Prophylaxis ordered?: No
--- NOTE | 2023-11-05 18:20 | NURSING ---
pt voided, afshan po well. pt discharged home
--- NOTE | 2023-11-05 19:11 | POSTOPAN2_ITS ---
Anesthesia Postop Eval I Sum Postop Eval Completion status Anesthesia document: Postop Eval 1 completed: Yes Anesthesia Postop Eval I Summary Anesthesia Postop Eval I Summary: Anesthesia Postop Eval I: Assessment Summary Airway patent Yes 11/05/23 16:46 PUBLIC INTERVIEWER.[email or web address] Spontaneous unlabored Yes 11/05/23 16:46 PUBLIC INTERVIEWER.[email or web address] respirations Mental status Awake,Calm 11/05/23 16:46 PUBLIC INTERVIEWER.[email or web address] nausea No 11/05/23 16:46 PUBLIC INTERVIEWER.[email or web address] Vomiting No 11/05/23 16:46 PUBLIC INTERVIEWER.[email or web address] Anesthesia Postop Eval I: Fluid Summary Crystalloid volume administer 400 11/05/23 16:46 PUBLIC INTERVIEWER.[email or web address] (ml) Colloids volume administered ( ml) Blood Product volume administered (ml) Total IV fluid infused 400 11/05/23 16:46 PUBLIC INTERVIEWER.[email or web address] Anesthesia Postop Eval I: Summary Notes Anesthesia Complication No 11/05/23 16:46 PUBLIC INTERVIEWER.[email or web address] Anesthesia Complication Comment: Post-operative progress note Anesthesia: Postop Eval II Evaluation Mental status: Awake and Calm Pain Level: 0 nausea: No Vomiting: No Complications Anesthesia Complication: No
--- NOTE | 2023-11-05 19:11 | PCM.POSTANE2 ---
Anesthesia Postop Eval I Sum Postop Eval Completion status Anesthesia document: Postop Eval 1 completed: Yes Anesthesia Postop Eval I Summary Anesthesia Postop Eval I Summary: Anesthesia Postop Eval I: Assessment Summary Airway patent Yes 11/05/23 16:46 CUSTOMER EXPERIENCE RETAIL CLERK.[email or web address] Spontaneous unlabored Yes 11/05/23 16:46 CUSTOMER EXPERIENCE RETAIL CLERK.[email or web address] respirations Mental status Awake,Calm 11/05/23 16:46 CUSTOMER EXPERIENCE RETAIL CLERK.[email or web address] nausea No 11/05/23 16:46 CUSTOMER EXPERIENCE RETAIL CLERK.[email or web address] Vomiting No 11/05/23 16:46 CUSTOMER EXPERIENCE RETAIL CLERK.[email or web address] Anesthesia Postop Eval I: Fluid Summary Crystalloid volume administer 400 11/05/23 16:46 CUSTOMER EXPERIENCE RETAIL CLERK.JBLOU (ml) Colloids volume administered ( ml) Blood Product volume administered (ml) Total IV fluid infused 400 11/05/23 16:46 CUSTOMER EXPERIENCE RETAIL CLERK.[email or web address] Anesthesia Postop Eval I: Summary Notes Anesthesia Complication No 11/05/23 16:46 CUSTOMER EXPERIENCE RETAIL CLERK.[email or web address] Anesthesia Complication Comment: Post-operative progress note Anesthesia: Postop Eval II Evaluation Mental status: Awake and Calm Pain Level: 0 nausea: No Vomiting: No Complications Anesthesia Complication: No
== END 2023-11-05 18:45 | disposition home or self-care (01) | DRG 661 ==
LOC: ED 16:25 → MS3 18:02
PROVIDERS: Admitting Provider Urology; Emergency Provider Emergency Medicine; PCP Student in an Organized Health Care Education/Training Program; Visit Provider Urology
PROC: 0T768DZ Dilation of Right Ureter with Intraluminal Device, Via Natural or Artificial Opening Endoscopic (ICD-10-PCS; CPT 52332; principal; 2023-11-05 15:50)
DX: N13.6 Pyonephrosis (principal); F17.210 Nicotine dependence, cigarettes, uncomplicated; Z79.890 Hormone replacement therapy; Z79.899 Other long term (current) drug therapy
CPT/HCPCS: 74176; 76000; 80048; 80053; 81001; 83605; 84443; 85025; 85027; 87086; 87088; 87186; 93005; 99282; J7030; J7050; A4216; C1769; C2617; J0744; J2405; J3490

== ENCOUNTER 2023-11-16 16:08 | Emergency (ER) | payer MEDICARE, MEDICAID, SELFPAY ==
[2023-11-16 16:09] VITALS: BP 113/77; PULSE 99; RESP 20; TEMP 36.7; O2SAT 98; BMI 28.3
[2023-11-16 16:14] VITALS: BP 113/77; PULSE 102; RESP 20; TEMP 36.7; O2SAT 100
--- NOTE | 2023-11-16 16:29 | CT_ITS ---
EXAM: CT ABDOMEN AND PELVIS WITHOUT INTRAVENOUS CONTRAST CLINICAL INDICATION: Left flank pain TECHNIQUE: Helically acquired images were obtained of the abdomen and pelvis without intravenous contrast. This CT exam was performed using one or more of the following dose reduction techniques: automated exposure control, adjustment of the mA and/or kV according to patient size, and/or use of iterative reconstruction technique. RADIATION DOSE: CTDIvol = 8.91 mGy, DLP = 462.78 mGy-cm COMPARISON: 6.18.24 FINDINGS: LOWER THORAX: Unremarkable. Lung bases are clear. No cardiomegaly. No significant pericardial effusion. ABDOMEN: LIVER: Unremarkable. Homogeneous. GALLBLADDER AND BILE DUCTS: Gallbladder is contracted. No calcified gallstones. No gallbladder distention or wall edema. No intra- or extrahepatic biliary ductal dilation. PANCREAS: Unremarkable. No focal cystic mass. SPLEEN: Unremarkable. Normal size without focal cystic or solid mass. ADRENALS: Unremarkable. No nodules. KIDNEYS AND URETERS: Double-J left ureteral stent in place. No visible ureteral calculus. Moderate left hydronephrosis. Nonobstructive left renal calcifications. These measure up to 4 mm. Normal renal size and position. STOMACH AND BOWEL: Unremarkable. No stomach or bowel distention. No focal inflammatory change. PELVIS: APPENDIX: No evidence of acute appendicitis. BLADDER: Unremarkable. REPRODUCTIVE: Unremarkable appearance of the uterus. ABDOMEN and PELVIS: INTRAPERITONEAL SPACE: Unremarkable. No ascites or other fluid collection. No free air. BONES/JOINTS: Degenerative findings in the lumbar spine. No suspicious lytic or blastic abnormality. SOFT TISSUES: Right breast implant. Umbilical hernia containing fat. VASCULATURE: Abdominal aortic vascular calcifications. Abdominal aorta is non-dilated. LYMPH NODES: Unremarkable. No enlarged lymph nodes. CT/Abdomen/Pelvis without Cont IMPRESSION: 1. Double-J left ureteral stent in place. No visible ureteral calculus. Moderate left hydronephrosis. 2. Nonobstructive left renal calcifications. These measure up to 4 mm. Electronically Signed: Rob Yoon MD at 17:11 EDT Reading Location ID and State: [facility] / [place] , Service support ,
[2023-11-16] MEDS: 0.9% Normal Saline (1000mL) 1,000 ML 999 ML IV (16:35)
[2023-11-16 16:40] LABS: Mucous, Urine 0 SEEN /hpf (<or=2+); Squamous Epithelial Cells - UA 0 SEEN /hpf (5-10)
[2023-11-16 16:41] LABS: Color, Urine Yellow (Yellow); Glucose, Dipstick Normal (Normal); Ketone-Dipstick Negative (Negative); Leukocyte Esterase-Dipstick 500 /ul (Negative); Nitrite-Dipstick Negative (Negative); Occult Blood-Urine 250 /ul (Negative); Protein-Dipstick 100 mg/dl (Negative); Specific Gravity, Urine 1.015 (1.002-1.030); Urine Bilirubin Dipstick Negative (Negative); Urine Clarity Sl. Cloudy (Clear); Urine Urobilinogen Normal (Normal)
[2023-11-16 16:42] LABS: Absolute Lymphocyte Count 1.91 X10^3/uL (0.83-4.51); Basophil# 0.02 X10^3/uL; Basophil% 0.2 % (0-1); Eosinophil# 0.18 X10^3/uL; Eosinophils% 1.8 % (0-5); Hematocrit 39.2 % (37-47); Hemoglobin 12.8 g/dL (12.0-15.0); Lymphocyte # 1.91 X10^3/ul (0.83-4.51); Lymphocyte % 19.3 % (19-41); Mean Corp Hgb Conc 32.7 g/dL (32-36); Mean Corpuscular Volume 94.9 fL (81-99); Mean Platelet Vol. 10.7 fl (6.2-12.0); Monocyte# 0.76 X10^3/uL; Monocyte% 7.7 % (0-10); NRBC Flagged by Analyzer 0 % (0-5); Neutrophil # 7.03 X10^3/uL (2.7-7.7); Neutrophil % 70.8 % (47-70); Platelet Count 202 K/mm3 (150-450); RBC Distribution Width CV 14.6 % (11.6-14.6); RBC Distribution Width SD 51.3 fl (35.1-43.9); Red Blood Count 4.13 M/mm3 (4.2-5.4); White Blood Count 9.9 K/mm3 (4.4-11.0)
[2023-11-16 16:47] LABS: Red Blood Cells-Urine 25-50 SEEN /hpf (0-5); White Blood Cells 10-25 SEEN /hpf (0-5)
[2023-11-16 16:48] LABS: Bacteria RARE /hpf (None Seen)
[2023-11-16 16:51] LABS: Anion Gap 7 (5-15); BUN 14 mg/dL (7-18); BUN/Creat Ratio 12.1 RATIO (10-20); Calcium,Total 9.3 mg/dL (8.5-10.1); Chloride 112 mmol/L (98-107); Creatinine, Serum 1.16 mg/dL (0.55-1.02); EST Glomerular Filtration Rate 52 mL/min (>60); Est Glom Filt Rate - Afr Amer 63 mL/min (>60); Estimated Creatinine Clearance 58.29 ml/min; Glucose 118 mg/dL (74-106); Potassium 3.6 mmol/L (3.5-5.1); Sodium Level 140 mmol/L (136-145)
[2023-11-16 17:14] VITALS: BP 115/70; PULSE 87; RESP 16; TEMP 36.5; O2SAT 99
[2023-11-16] MEDS: Morphine 4 MG/ML Syringe IV (17:43)
--- NOTE | 2023-11-16 17:43 | EX.ED.DYSGE1 ---
HPI <KENIA Ann - Last Filed: 11/16/23 17:48> History of Present Illness Chief Complaint: Flank Pain Narrative Narrative: Patient a 53-year-old female with history of chronic back pain is in pain management, GERD, history of kidney stones who presents to the emergency department with pain in the left flank. Patient sees Dr. Boone, patient had a left ureteral stent placed 2 days ago. Patient states today, she started having worsening left flank pain, it got severe and she called EMS to bring her to the emergency department. She did call the urologist office who referred her to the emergency department as well. 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 Osteopenia Fibromyalgia Rheumatoid aortitis Bipolar 1 disorder Malignant neoplasm Home Medications ?Medication ?Instructions ?Recorded ?Last Taken ?Type albuterol sulfate 90 mcg/actuation 1 inh inhalation ONCE PRN 01/25/22 Unknown History aerosol inhaler shortness of breath or wheezing anastrozole 1 mg tablet 1 mg PO DAILY 01/25/22 11/04/23 History furosemide 40 mg tablet 40 mg PO DAILY 01/25/22 11/04/23 History gabapentin 400 mg capsule 400 mg PO TID 01/25/22 11/04/23 History levothyroxine 25 mcg tablet 25 mcg PO DAILY 01/25/22 11/04/23 History oxycodone-acetaminophen 5 mg-325 1 tab PO TID PRN pain 01/25/22 Unknown History mg tablet rosuvastatin 40 mg tablet 40 mg PO QHS 01/25/22 11/03/23 History baclofen 10 mg tablet 10 mg PO TID PRN muscle spasm 11/04/23 11/04/23 History cetirizine 10 mg tablet 10 mg PO DAILY PRN allergy symptoms 11/04/23 Unknown History esomeprazole magnesium 40 mg 40 mg PO DAILY 11/04/23 11/04/23 History capsule,delayed release galcanezumab-gnlm 120 mg/mL 120 mg subcut QMONTH 11/04/23 10/10/23 History subcutaneous syringe (Emgality) topiramate 100 mg tablet 100 mg PO BID 11/04/23 11/04/23 History ciprofloxacin HCl 500 mg tablet 500 mg PO BID #14 tabs 11/05/23 Unknown Rx (Cipro) phenazopyridine 100 mg tablet 100 mg PO TID #15 tabs 11/05/23 Unknown Rx (Pyridium) tamsulosin 0.4 mg capsule 0.4 mg PO DAILY #10 caps 11/05/23 Unknown Rx amitriptyline 150 mg tablet 150 mg PO QHS 11/16/23 Unknown History hydroxyzine pamoate 25 mg capsule 25 mg PO DAILY PRN anxiety 11/16/23 Unknown History ubrogepant 100 mg tablet (Ubrelvy) 100 mg PO .COMPLEX 11/16/23 Unknown History Allergy/AdvReac Type Severity Reaction Status Date / Time ibuprofen (From Advil) Allergy Mild Inflammation Verified 11/16/23 16:09 of lung bee venom protein (honey Allergy Inflammation Verified 11/16/23 16:09 bee) (bee sting) of lung Surgical History (Updated 11/16/23 @ 17:48 by KENIA Ann) History of rhinoplasty H/O right mastectomy Social History Smoking Status: Heavy Smoker (>10/day) ROS <KENIA Ann - Last Filed: 11/16/23 17:48> ROS ED ROS Narrative Constitutional: Negative for fever, chills, weight loss, weakness Eyes: Negative for vision loss, vision change, double vision ENT: Negative for any sore throat, ear pain, congestion Cardiovascular: Negative for any chest pain, tightness, palpitations Respiratory: Negative for any cough, sputum production, hemoptysis, dyspnea, dyspnea on exertion, orthopnea Gastrointestinal: Negative for any abdominal pain, nausea, vomiting, diarrhea, constipation, blood in stool, blood in vomit : Negative for any urinary frequency, dysuria, retention, blood in urine Muscle skeletal: Negative for any neck pain. Positive for left-sided flank pain Neurological: Negative for any headache, syncope, dizziness Skin: Negative for any rashes, itching, abrasions, lacerations Psychiatric: Negative for any depression, anxiety, stress, suicidal ideation, homicidal ideation Hematologic: Negative for any excessive bruising, easy bleeding EXAM <KENIA Ann - Last Filed: 11/16/23 17:48> Physical Exam Narrative Exam Narrative: Vital signs reviewed. HEET: Head normocephalic atraumatic, TMs clear bilaterally. Posterior pharynx is clear, moist mucous membranes. Nares clear bilaterally. Neck: Supple with no lymphadenopathy or tenderness. No signs of meningismus. Cardiac: Regular rate and rhythm no murmurs gallops or rubs, equal peripheral pulses bilaterally. Respiratory: Lungs clear to auscultation bilaterally. No chest tenderness. Abdomen: Soft, nontender, nondistended. No abdominal bruit or pulsatile masses. No hepatosplenomegaly Extremities: No peripheral edema, no signs of gross trauma or deformity. Active full range of motion of all extremities. Neuro: Cranial nerves II through XII intact, no focal neurological deficits. Skin: Clean dry and intact with no rash, purpura, petechiae, vesicles or pustules. Backs/flank: No CVA tenderness, no midline spinal tenderness, no deformity. Patient's pain is more just below the CVA area. Psych: Normal mood and affect. No SI, HI or acute psychosis. Const Vital Signs: 11/16/23 16:09 11/16/23 16:14 11/16/23 17:14 Temperature 98.1 F 98.1 F 97.7 F L Temperature Source Oral Oral Oral Pulse Rate 99 102 H 87 Respiratory Rate 20 H 20 H 16 Blood Pressure 113/77 113/77 115/70 Blood Pressure Mean 89 89 85 Pulse Ox 98 100 99 Oxygen Delivery Method Room Air Room Air Room Air 11/16/23 17:44 Temperature Temperature Source Pulse Rate 94 Respiratory Rate 16 Blood Pressure 110/72 Blood Pressure Mean 84 Pulse Ox 100 Oxygen Delivery Method Room Air <Dr. Pankaj Parra, - Last Filed: 11/16/23 18:02> Physical Exam Const Vital Signs: 11/16/23 16:09 11/16/23 16:14 11/16/23 17:14 Temperature 98.1 F 98.1 F 97.7 F L Temperature Source Oral Oral Oral Pulse Rate 99 102 H 87 Respiratory Rate 20 H 20 H 16 Blood Pressure 113/77 113/77 115/70 Blood Pressure Mean 89 89 85 Pulse Ox 98 100 99 Oxygen Delivery Method Room Air Room Air Room Air 11/16/23 17:44 Temperature Temperature Source Pulse Rate 94 Respiratory Rate 16 Blood Pressure 110/72 Blood Pressure Mean 84 Pulse Ox 100 Oxygen Delivery Method Room Air [facility] <Jr Alatorre KENIA - Last Filed: 11/16/23 17:48> [facility] Lab Data Labs: Laboratory Results - last 24 hr 11/16/23 16:31 WBC 9.9 RBC 4.13 L Hgb 12.8 Hct 39.2 MCV 94.9 MCH 31.0 MCHC 32.7 RDW Std Deviation 51.3 H RDW Coeff of Dian 14.6 Plt Count 202 MPV 10.7 Immature Gran % (Auto) 0.200 Neut % (Auto) 70.8 H Lymph % (Auto) 19.3 [place] % (Auto) 7.7 Eos % (Auto) 1.8 Baso % (Auto) 0.2 Absolute Neuts (auto) 7.0 Absolute Lymphs (auto) 1.91 Nucleated RBC % 0 Sodium 140 Potassium 3.6 Chloride 112 H Carbon Dioxide 21.0 Anion Gap 7 BUN 14 Creatinine 1.16 H Estim Creat Clear Calc 58.29 Est GFR (MDRD) Af Amer 63 Est GFR (MDRD) Non-Af 52 L BUN/Creatinine Ratio 12.1 Glucose 118 H Calcium 9.3 Urine Color Yellow Urine Clarity Sl. Cloudy Urine pH 7.0 Ur Specific Roberts 1.015 Urine Protein 100 H Urine Glucose (UA) Normal Urine Ketones Negative Urine Occult Blood 250 H Urine Nitrite Negative Urine Bilirubin Negative Urine Urobilinogen Normal Ur Leukocyte Esterase 500 H Urine RBC 25-50 SEEN Urine WBC 10-25 SEEN Ur Squamous Epith Cells 0 SEEN Urine Bacteria RARE Urine Mucus 0 SEEN Radiography Diagnostic Testing: Clinical Impression(s) from Imaging Studies Abdomen/Pelvis CT 11/16/23 16:29 IMPRESSION: 1. Double-J left ureteral stent in place. No visible ureteral calculus. Moderate left hydronephrosis. 2. Nonobstructive left renal calcifications. These measure up to 4 mm. Electronically Signed: Rob Yoon MD at 17:11 EDT , Treatment and Re-Evaluation :: Differential diagnosis includes however is not limited to: Failed ureteral stent, UTI, pyelonephritis, obstructing uropathy Patient appears to be in no obvious distress on my initial evaluation. Vital signs are stable, patient nontoxic-appearing. Presents to the emergency department with left flank pain recent ureteral stent placed 2 days ago. Patient did receive IV Zofran, Toradol in the squad and states that this did help her pain. Patient did receive some laboratory values, CBC was unremarkable, chemistries show a normal creatinine, urinalysis was showed rare bacteria 10-25 white blood cells however patient is currently on Cipro post procedure. CT scan of the abdomen pelvis IV contrast shows a double-J left ureteral stent in place. No visible ureteral calculus. Moderate left hydronephrosis. After I got all of the information and test results, I spoke with Dr. Boone, I went over the results with him, he believes the patient stable for discharge and can follow-up outpatient. Patient was given 1 dose of morphine before discharge. Patient is currently in pain management and takes oxycodone 10 mg daily. Patient will follow-up outpatient. All questions were answered, patient stable for discharge. <Dr. Pankaj Parra, DO - Last Filed: 11/16/23 18:02> [facility] Narrative Medical decision making narrative: I have personally performed a face to face assessment of the patient and have reviewed the DAWOOD Note. I performed a substantive portion of the visit including all aspects of the following. My zeng findings include: History: Patient presents with left flank pain that began today. Patient states that it is gradually getting worse. Patient states he had a recent ureteral stent placed 2 days ago. Patient states her pain is sharp. Patient states it is localized to the left flank radiates into her back. Patient states nothing makes it better or nothing makes it worse. Patient denies any nausea or vomiting. Patient denies any dysuria, frequency, or hematuria. Exam: Vital signs are stable. Patient is afebrile. Patient is in no acute distress. Oral mucosa is pink and moist. Neck is supple. Trachea is midline. There is no JVD. Heart was regular rate and rhythm. Lungs are clear and equal bilaterally. Abdomen is soft. Bowel sounds are normal. There is some left CVA tenderness and left lower abdominal tenderness. There is no rebound or guarding noted. Cranial nerves II through XII are intact. There are no focal motor or sensory deficits noted. Medical Decision Making: Differential diagnosis includes urinary tract infection, infected stent, bleeding, ureteral calculus, and diverticulitis. CBC will be obtained to assess for leukocytosis and anemia. Basic metabolic profile will be obtained to assess for electrolyte abnormality and renal function. Urinalysis will be obtained to assess for urinary tract infection and hematuria. CT scan of the abdomen pelvis will be obtained to assess for ureteral calculus, pyelonephritis, infected stent, and displacement of the stent. Patient was given Toradol by EMS. Patient states this did improve her pain. CBC was reviewed and was within normal limits. Basic metabolic profile was reviewed and was essentially within normal limits. Urinalysis was reviewed. Leukocyte esterase was 500. Occult blood was 250. There are 25-50 red blood cells and 10-[address] scan of the abdomen pelvis was obtained. There is moderate left hydronephrosis. The stent is in place. There are nonobstructive left renal calcifications. This was interpreted by the radiologist was also independently reviewed by myself. Patient states her pain was starting to come back. Patient was given a dose of morphine. Case was discussed with Dr. Boone. He will follow-up with the patient as an outpatient. Patient understood and was agreeable with the plan. All questions were answered. Lab Data Labs: Laboratory Results - last 24 hr 11/16/23 16:31 WBC 9.9 RBC 4.13 L Hgb 12.8 Hct 39.2 MCV 94.9 MCH 31.0 MCHC 32.7 RDW Std Deviation 51.3 H RDW Coeff of Dian 14.6 Plt Count 202 MPV 10.7 Immature Gran % (Auto) 0.200 Neut % (Auto) 70.8 H Lymph % (Auto) 19.3 [place] % (Auto) 7.7 Eos % (Auto) 1.8 Baso % (Auto) 0.2 Absolute Neuts (auto) 7.0 Absolute Lymphs (auto) 1.91 Nucleated RBC % 0 Sodium 140 Potassium 3.6 Chloride 112 H Carbon Dioxide 21.0 Anion Gap 7 BUN 14 Creatinine 1.16 H Estim Creat Clear Calc 58.29 Est GFR (MDRD) Af Amer 63 Est GFR (MDRD) Non-Af 52 L BUN/Creatinine Ratio 12.1 Glucose 118 H Calcium 9.3 Urine Color Yellow Urine Clarity Sl. Cloudy Urine pH 7.0 Ur Specific Roberts 1.015 Urine Protein 100 H Urine Glucose (UA) Normal Urine Ketones Negative Urine Occult Blood 250 H Urine Nitrite Negative Urine Bilirubin Negative Urine Urobilinogen Normal Ur Leukocyte Esterase 500 H Urine RBC 25-50 SEEN Urine WBC 10-25 SEEN Ur Squamous Epith Cells 0 SEEN Urine Bacteria RARE Urine Mucus 0 SEEN Radiography Diagnostic Testing: Clinical Impression(s) from Imaging Studies Abdomen/Pelvis CT 11/16/23 16:29 IMPRESSION: 1. Double-J left ureteral stent in place. No visible ureteral calculus. Moderate left hydronephrosis. 2. Nonobstructive left renal calcifications. These measure up to 4 mm. Electronically Signed: Rob Yoon MD at 17:11 EDT Reading Location ID and State: [facility] / [place] , Service support , Discharge Plan Triage Chief Complaint: Flank Pain ED Midlevel Provider: Jr Alatorre ED Provider: Pankaj Parra Dx/Rx/DC Orders Clinical Impression: Acute flank pain, History of ureter stent Instructions: ED Flank Pain, Uncertain Cause Prescriptions: No Action oxycodone-acetaminophen 5-325 mg tablet 1 tab PO TID PRN (Reason: pain) anastrozole 1 mg tablet 1 mg PO DAILY rosuvastatin 40 mg tablet 40 mg PO QHS furosemide 40 mg tablet 40 mg PO DAILY levothyroxine 25 mcg tablet 25 mcg PO DAILY gabapentin 400 mg capsule 400 mg PO TID albuterol sulfate 90 mcg/actuation HFA aerosol inhaler 1 inh inhalation ONCE PRN (Reason: shortness of breath or wheezing) amitriptyline 150 mg tablet 150 mg PO QHS hydroxyzine pamoate 25 mg capsule 25 mg PO DAILY PRN (Reason: anxiety) Ubrelvy 100 mg tablet 100 mg PO .COMPLEX Rx Instructions: 100 mg orally TAKE 1 TABLET BY MOUTH NEEDED FOR ACUTE TREATMENT OF MIGRAINE. MAY REPEAT 2ND DOSE AFTER 2 HOURS IF INCOMPLETE RESPONSE. DO NOT EXCEED 200MG DAILY; baclofen 10 mg tablet 10 mg PO TID PRN (Reason: muscle spasm) esomeprazole magnesium 40 mg capsule,delayed release(DR/EC) 40 mg PO DAILY Emgality Syringe 120 mg/mL syringe 120 mg subcut QMONTH Rx Instructions: LAST TAKEN 10/10/23 topiramate 100 mg tablet 100 mg PO BID cetirizine 10 mg tablet 10 mg PO DAILY PRN (Reason: allergy symptoms) ciprofloxacin HCl [Cipro] 500 mg tablet 500 mg PO BID Qty: 14 0RF Patient Comments: last day 11/17/23 phenazopyridine [Pyridium] 100 mg tablet 100 mg PO TID Qty: 15 0RF tamsulosin 0.4 mg capsule 0.4 mg PO DAILY Qty: 10 0RF Primary Care Provider: Jeffrey Rivers Referrals: Victorino Boone MD [Med Staff - Active Staff] - Jeffrey Rivers DO [Primary Care Provider] - Activity Restrictions/Additional Instructions: Please follow-up with urology. Return for any worsening symptoms. Print Language: Setswana Disposition Disposition: Home, Self Care
[2023-11-16 17:44] VITALS: BP 110/72; PULSE 94; RESP 16; O2SAT 100
[2023-11-16 17:58] VITALS: BP 113/83; PULSE 91; RESP 18; TEMP 36.6; O2SAT 100
== END 2023-11-16 18:02 | disposition home or self-care (01) ==
PROVIDERS: Nurse Practitioner; Emergency Provider Emergency Medicine; PCP Student in an Organized Health Care Education/Training Program; Visit Provider Emergency Medicine
DX: R10.9 Unspecified abdominal pain (principal); F31.9 Bipolar disorder, unspecified; E11.9 Type 2 diabetes mellitus without complications; F17.200 Nicotine dependence, unspecified, uncomplicated; E03.9 Hypothyroidism, unspecified; K21.9 Gastro-esophageal reflux disease without esophagitis; F41.9 Anxiety disorder, unspecified; G47.30 Sleep apnea, unspecified; Z79.899 Other long term (current) drug therapy; Z79.51 Long term (current) use of inhaled steroids
CPT/HCPCS: 74176; 80048; 81001; 85025; 96361; 96374; 99283; A4216